=== PATIENT | female | born 1985 | race Caucasian/White ===

== ENCOUNTER 2017-11-24 11:25 | Emergency (ER) | payer OTHER ==
[~2017-11-24] VITALS: Ht 147.3 cm; Wt 37.2 kg
--- NOTE | 2017-11-24 11:25 | NUR ---
Zack samuels and placed in bed 3 by EMS.
--- NOTE | 2017-11-24 11:36 | NUR ---
PATIENT JOSE FROM ADULT DAY CARE DUE TO SZ;PER EMS PT WAS SITTING ON A CHAIR WHEN SHE HAD A SZ;NO FALL.PT IS NON VERBAL;NAD AT THIS TIME;PT APPEARS KEVIN ANXIOUS;LAST SZ ATTACK 2 YEARS AGO; SKIN IS PINK/WARM/DRY; AWAKE AND ALERT;NO CP, SOB, OR COUGH AT THIS TIME; PATIENT STATES PAIN OF 0/10 AT THIS TIME;PATIENT POSITIONED FOR COMFORT; HOB ELEVATED; BEDRAILS UP X2; BED DOWN.SZ PRECAUTION DONE;ALL MONITORS IN PLACED; ER MD MADE AWARE OF PT STATUS.
[2017-11-24 11:40] VITALS: BP 146/98
[2017-11-24] MEDS ORDERED: SYN.05 PO (11:57)
[2017-11-24] MEDS ORDERED: ATI.5 PO (11:57)
[2017-11-24] MEDS ORDERED: oxcarbazepine PO (12:07)
--- NOTE | 2017-11-24 12:42 | NUR ---
XRAY AT BEDSIDE.
--- NOTE | 2017-11-24 12:54 | NUR ---
DR SANDERSON EVALUATING PT.
--- NOTE | 2017-11-24 13:11 | NUR ---
WENT TO CT SCAN ACCOMPANIED BY TECH.
[2017-11-24 13:57] LABS: BASOPHILS % (AUTO) 0.7 % (0.0-2.0); EOSINOPHILS % (AUTO) 0.6 % (0.0-4.0); HEMATOCRIT 37.6 % (36-48); HEMOGLOBIN 12.8 g/dL (12.0-16.0); LYMPHOCYTES # (AUTO) 0.7 K/uL (2.5-16.5); LYMPHOCYTES % (AUTO) 14.8 % (20.5-51.1); MEAN CORPUSCULAR HEMOGLOBIN 30 pg (27-31); MEAN CORPUSCULAR HGB CONC 34 g/dL (33-37); MEAN CORPUSCULAR VOLUME 88 fL (80-94); MONOCYTES # (AUTO) 0.1 K/uL (0.8-1.0); MONOCYTES % (AUTO) 2.7 % (1.7-9.3); NEUTROPHILS # (AUTO) 4.2 K/uL (1.8-7.7); NEUTROPHILS % (AUTO) 81.2 % (42.2-75.2); PLATELET COUNT (AUTO) 169 K/uL (140-450); RED BLOOD CELL COUNT(AUTO) 4.26 MIL/uL (4.20-5.40); RED CELL DISTRIBUTION WIDTH 12.1 % (11.6-13.7)
[2017-11-24 14:26] LABS: ALBUMIN 4.1 g/dL (3.4-5.0); ANION GAP 14.7 (8-16); CARBON DIOXIDE 25.7 mmol/L (21-32); CREATININE 0.4 mg/dL (0.6-1.3); FREE T4 (FREE THYROXINE) 0.69 ng/dL (0.76-1.46); POTASSIUM 4.4 mmol/L (3.5-5.1); THYROID STIMULATING HORMONE 0.89 uIU/mL (0.34-3.74); TOTAL BILIRUBIN 0.3 mg/dL (0.0-1.0)
[2017-11-24 15:02] VITALS: BP 104/68
--- NOTE | 2017-11-24 15:02 | NUR ---
Patient discharged with v/s stable. Written and verbal after care instructions given and explained. Patient verbalized understanding. Wheel Chair Assisted with by parent. All questions addressed prior to discharge. Advised to follow up with PMD.
== END 2017-11-24 15:02 | disposition home or self-care (01) ==
LOC: MED 11:25
DX: G40.909 Epilepsy, unspecified, not intractable, without status epilepticus (principal); E87.1 Hypo-osmolality and hyponatremia; F84.0 Autistic disorder
CPT/HCPCS: 36415; 70450; 80053; 82948; 83690; 84439; 84443; 85025; 99285